=== PATIENT | male | born 1975 | race Caucasian/White ===

== ENCOUNTER 2025-01-21 13:40 | Emergency (ER) | payer MEDICAID, OTHER ==
[~2025-01-21] VITALS: Ht 180.3 cm; Wt 71.7 kg
[2025-01-21 14:14] VITALS: TEMP 97.7
[2025-01-21] MEDS ORDERED: KETOROLAC TROMETHAMINE 15 MG/ML VIAL ONE (15:19)
[2025-01-21] MEDS: KETOROLAC TROMETHAMINE 15 MG/ML VIAL IM ONE (15:29)
[2025-01-21] MEDS ORDERED: LIDO30AD10 TP (15:49)
[2025-01-21] MEDS ORDERED: IBUP-1955 PO (15:49)
[2025-01-21] MEDS ORDERED: ACET325C7 PO (15:49)
[2025-01-21] MEDS ORDERED: METH-649 PO (15:49)
[2025-01-21 18:10] VITALS: BP 102/68; O2SAT 98
== END 2025-01-21 18:00 | disposition home or self-care (01) ==
LOC: ER 14:00
DX: M54.50 Low back pain, unspecified (principal); M25.552 Pain in left hip; M25.551 Pain in right hip; M54.2 Cervicalgia; Z60.2 Problems related to living alone
CPT/HCPCS: 99284; 96372; 72040; 73521; 72100; J1885